=== PATIENT | female | born 1980 | race African-American/Black ===

== ENCOUNTER 2018-11-29 13:33 | Emergency (ER) | payer BC ==
[2018-11-29] MEDS ORDERED: IV NORMAL SALINE 1,000ML 1,000 ML IV SCH (13:42)
[2018-11-29] MEDS ORDERED: HYDROmorphone PF 1 MG/ML DISP.SYRIN IV/SQ PRN (13:45)
--- NOTE | 2018-11-29 13:59 | PHYS DOC ---
Adult General Chief Complaint Chief Complaint: ABDOMINAL PAIN HPI HPI Patient is a 38-year-old female who presents with acute onset of mid abdominal pain that started approximately 45 minutes ago. Patient rates pain as severe and states that pain is worsened with movement and palpation. Nothing improves pain. Patient complains of nausea but has had no vomiting.[] Review of Systems Review of Systems Constitutional: Denies fever or chills [] Respiratory: Denies cough or shortness of breath [] Cardiovascular: No additional information not addressed in HPI [] GI: Complains of abdominal pain with nausea. Denies vomiting or diarrhea[] : Denies dysuria or hematuria [] All other systems were reviewed and found to be within normal limits, except as documented in this note. Current Medications Current Medications Current Medications Medications (Trade) Dose Ordered Sig/Franki Start Time Stop Time Status Last Admin Dose Admin Hydromorphone HCl (Dilaudid) 1 mg PRN Q15MIN PRN 11/29/18 13:45 11/30/18 13:44 UNV Sodium Chloride 1,000 ml @ 1,000 mls/hr Q1H 11/29/18 13:42 11/29/18 14:41 UNV Physical Exam Physical Exam Constitutional: Well developed, well nourished, in moderate distress, non-toxic appearance. [] HENT: Normocephalic, atraumatic, bilateral external ears normal, oropharynx moist, no oral exudates, nose normal. [] Eyes: PERRLA, EOMI, conjunctiva normal, no discharge. [] Neck: Normal range of motion, no tenderness, supple, no stridor. [] Cardiovascular:Heart rate regular rhythm, no murmur [] Lungs & Thorax: Bilateral breath sounds clear to auscultation [] Abdomen: Bowel sounds normal, soft, with moderate mid to upper abdominal tenderness. [] Skin: Warm, dry, no erythema, no rash. [] Extremities: No tenderness, no cyanosis, no clubbing, ROM intact, no edema. [] Neurologic: Alert and oriented X 3, no focal deficits noted. [] EKG EKG [] Radiology/Procedures Radiology/Procedures [] Impressions: PROCEDURE: US PELVIS W/TV Examination: Ultrasound pelvis HISTORY: History of pelvic pain COMPARISON: None available FINDINGS: The uterus measures 8.5 x 5.4 x 4.7 cm. The endometrium measures 3.8 mm in thickness. The right ovary measures 3.3 x 1.8 x 1.7 cm. The left ovary measures 2.3 x 1.2 x 1.2 cm. Blood flow identified in the right and left ovaries. IMPRESSION: Unremarkable exam. Electronically signed by: Anson Roberson MD (11/29/2018 4:17 PM) [facility] PROCEDURE: CT ABD PELV W/ IV CONTRST ONLY Examination: CT of the abdomen pelvis with IV contrast HISTORY: History of abdominal pain COMPARISON: None available Technique: Axial CT images of the abdomen pelvis were performed with IV contrast. Coronal and sagittal reformats are performed Exposure: One or more of the following individualized dose reduction techniques were utilized for this examination: 1. Automated exposure control 2. Adjustment of the mA and/or kV according to patient size 3. Use of iterative reconstruction technique FINDINGS: The bibasilar lungs are clear. No evidence of free air identified in the abdomen. Mild decreased attenuation noted in the liver likely hepatic steatosis. The visualized spleen, adrenals grossly appears unremarkable. Cholecystectomy clips identified. Surgical changes identified in the stomach. The visualized pancreas grossly appears unremarkable. Mild fluid distended small bowel loops identified. The appendix is normal. Feces and gas noted in the colon. Urinary bladder is mildly distended. The bilateral kidneys enhance symmetrically. No evidence of lytic bony destructive lesion. IMPRESSION: 1. Minimal fluid distended small bowel loops, nonspecific could be mild enteritis. Otherwise no acute findings. Electronically signed by: Anson Roberson MD (11/29/2018 2:44 PM) [facility] Course & Med Decision Making Course & Med Decision Making Pertinent Labs and Imaging studies reviewed. (See chart for details) [] Dragon Disclaimer Dragon Disclaimer This electronic medical record was generated, in whole or in part, using a voice recognition dictation system. Departure Departure: Impression: Primary Impression: Enteritis Additional Impression: Abdominal pain Disposition: 01 HOME, SELF-CARE Condition: STABLE Referrals: PCP,NO (PCP) Patient Instructions: Abdominal Pain Scripts Ondansetron Hcl (ZOFRAN) 4 Mg Tablet 4 MG PO Q6HRS PRN for NAUSEA, #12 TAB Prov: HERMANN BANKS Jr. DO 11/29/18 Hydrocodone Bit/Acetaminophen (NORCO 5-325 TABLET) 1 Each Tablet 1 TAB PO PRN Q6HRS PRN for PAIN, #12 TAB 0 Refills Prov: HERMANN BANKS Jr. DO 11/29/18 Ciprofloxacin Hcl (CIPROFLOXACIN HCL) 500 Mg Tablet 1 TAB PO BID for infection, #20 TAB Prov: HERMANN BANKS Jr. DO 11/29/18 Metronidazole (FLAGYL) 500 Mg Tablet 500 MG PO TID for infection, #30 TAB Prov: HERMANN BANKS Jr. DO 11/29/18 Problem Qualifiers Additional Impression: Abdominal pain Abdominal location: periumbilical Qualified Codes: R10.33 - Periumbilical pain HERMANN BANKS Jr. DO Nov 29, 2018 13:59
[2018-11-29 14:00] VITALS: BP 170/80
[2018-11-29 14:00] LABS: BASO # 0.1 x10^3/uL (0.0-0.2); BASO % 1 % (0-3); EOS % 0 % (0-3); HEMATOCRIT 33.4 % (36.0-47.0); HEMOGLOBIN 10.5 g/dL (12.0-15.5); LYMPH # 1.6 x10^3/uL (1.0-4.8); LYMPH % 10 % (24-48); MEAN CORPUSCULAR HEMOGLOBIN 23 pg (25-35); MEAN CORPUSCULAR HGB CONC 31 g/dL (31-37); MEAN CORPUSCULAR VOLUME 73 fL (79-100); MONO # 0.8 x10^3/uL (0.0-1.1); MONO % 5 % (0-9); NEUT # 14.2 x10^3uL (1.8-7.7); NEUT % 85 % (31-73); PLATELET COUNT 529 x10^3/uL (140-400); RED BLOOD COUNT 4.61 x10^6/uL (3.50-5.40); RED CELL DISTRIBUTION WIDTH 20.3 % (11.5-14.5); WHITE BLOOD COUNT 16.7 x10^3/uL (4.0-11.0)
[2018-11-29] MEDS ORDERED: IOHEXOL 300 MG/ML 75 ML VIAL. IV ONE (14:00)
[2018-11-29] MEDS ORDERED: METOCLOPRAMIDE HCL 10 MG/2 ML VIAL. IV ONE (14:00)
[2018-11-29] MEDS ORDERED: diphenhydrAMINE 50 MG/ML VIAL IVP ONE (14:00)
[2018-11-29 14:10] LABS: ALBUMIN 4.3 g/dL (3.4-5.0); CALCIUM 9.7 mg/dL (8.5-10.1); CREATININE 0.9 mg/dL (0.6-1.0); GFR 83.9; TOTAL PROTEIN 8.5 g/dL (6.4-8.2)
[2018-11-29 14:19] LABS: % BANDS 1 % (0-9); % LYMPHS 7 % (24-48); % MONOS 6 % (0-10); % SEGS 86 % (35-66); PLT ESTIMATE INCREASED (ADEQUATE)
[2018-11-29 14:20] LABS: ANISOCYTOSIS SLIGHT; MICROCYTOSIS SLIGHT; OVALOCYTES FEW
[2018-11-29 14:21] LABS: TOXIC GRANULATION SLIGHT
[2018-11-29 14:23] LABS: HYPOCHROMIA SLIGHT
--- NOTE | 2018-11-29 14:47 | RAD ---
Examination: CT of the abdomen pelvis with IV contrast HISTORY: History of abdominal pain COMPARISON: None available Technique: Axial CT images of the abdomen pelvis were performed with IV contrast. Coronal and sagittal reformats are performed Exposure: One or more of the following individualized dose reduction techniques were utilized for this examination: 1. Automated exposure control 2. Adjustment of the mA and/or kV according to patient size 3. Use of iterative reconstruction technique FINDINGS: The bibasilar lungs are clear. No evidence of free air identified in the abdomen. Mild decreased attenuation noted in the liver likely hepatic steatosis. The visualized spleen, adrenals grossly appears unremarkable. Cholecystectomy clips identified. Surgical changes identified in the stomach. The visualized pancreas grossly appears unremarkable. Mild fluid distended small bowel loops identified. The appendix is normal. Feces and gas noted in the colon. Urinary bladder is mildly distended. The bilateral kidneys enhance symmetrically. No evidence of lytic bony destructive lesion. IMPRESSION: 1. Minimal fluid distended small bowel loops, nonspecific could be mild enteritis. Otherwise no acute findings. Electronically signed by: Anson Roberson MD (11/29/2018 2:44 PM) [facility]
--- NOTE | 2018-11-29 16:20 | RAD ---
Examination: Ultrasound pelvis HISTORY: History of pelvic pain COMPARISON: None available FINDINGS: The uterus measures 8.5 x 5.4 x 4.7 cm. The endometrium measures 3.8 mm in thickness. The right ovary measures 3.3 x 1.8 x 1.7 cm. The left ovary measures 2.3 x 1.2 x 1.2 cm. Blood flow identified in the right and left ovaries. IMPRESSION: Unremarkable exam. Electronically signed by: Anson Roberson MD (11/29/2018 4:17 PM) [facility]
[2018-11-29] MEDS ORDERED: HYDR-3165 PO (16:35)
[2018-11-29] MEDS ORDERED: CIPR500T PO (16:35)
[2018-11-29] MEDS ORDERED: ONDA4TAB7 PO (16:35)
[2018-11-29] MEDS ORDERED: METR500T PO (16:35)
[2018-11-29 16:49] LABS: BILIRUBIN,URINE NEG (NEG); CLARITY,URINE HAZY; COLOR,URINE YELLOW; GLUCOSE,URINE NEG (NEG)
[2018-11-29 16:50] LABS: BACTERIA,URINE FEW /HPF (0-FEW); NITRITE,URINE NEG (NEG); SQUAMOUS EPITHELIAL CELL,UR OCC /LPF; UROBILINOGEN,URINE 1 mg/dL (0.2 mg/dL)
[2018-11-29] MEDS ORDERED: metroNIDAZOLE 500 MG TABLET PO ONE (17:00)
[2018-11-29] MEDS ORDERED: CIPROFLOXACIN HCL 500 MG TABLET PO ONE (17:00)
== END 2018-11-29 14:26 | disposition home or self-care (01) ==
LOC: ER 13:33
DX: K52.9 Noninfective gastroenteritis and colitis, unspecified (principal); R10.33 Periumbilical pain; N32.89 Other specified disorders of bladder
CPT/HCPCS: 36415; 74177; 76830; 76856; 80053; 81001; 83690; 84484; 85007; 85025; 93005; 96361; 96374; 96375; 99285; J1170; J1200; J2765; J7030

== ENCOUNTER 2018-12-19 15:47 | Emergency (ER) | payer BC ==
[~2018-12-19 15:47] MED LIST: CIPR500T PO; HYDR-3165 PO; METR500T PO; ONDA4TAB7 PO
[2018-12-19] MEDS ORDERED: DICYCLOMINE HCL 20 MG TABLET PO ONE (16:00)
[2018-12-19 16:15] VITALS: BP 140/100
[2018-12-19 16:36] LABS: BASO % 0 % (0-3); EOS % 0 % (0-3); HEMATOCRIT 32.4 % (36.0-47.0); HEMOGLOBIN 10.3 g/dL (12.0-15.5); LYMPH # 2.1 x10^3/uL (1.0-4.8); LYMPH % 20 % (24-48); MEAN CORPUSCULAR HEMOGLOBIN 24 pg (25-35); MEAN CORPUSCULAR HGB CONC 32 g/dL (31-37); MEAN CORPUSCULAR VOLUME 74 fL (79-100); MONO # 0.4 x10^3/uL (0.0-1.1); MONO % 4 % (0-9); NEUT # 7.7 x10^3uL (1.8-7.7); NEUT % 75 % (31-73); PLATELET COUNT 416 x10^3/uL (140-400); RED BLOOD COUNT 4.35 x10^6/uL (3.50-5.40); RED CELL DISTRIBUTION WIDTH 19.6 % (11.5-14.5); WHITE BLOOD COUNT 10.3 x10^3/uL (4.0-11.0)
[2018-12-19 16:44] LABS: ALBUMIN 4.2 g/dL (3.4-5.0); ALBUMIN/GLOBULIN RATIO 1.1 (1.0-1.7); CREATININE 0.8 mg/dL (0.6-1.0); GFR 96.1; POTASSIUM 3.8 mmol/L (3.5-5.1); TOTAL BILIRUBIN 0.6 mg/dL (0.2-1.0); TOTAL PROTEIN 8.1 g/dL (6.4-8.2)
[2018-12-19] MEDS ORDERED: DIAZ5TAB PO (17:03)
--- NOTE | 2018-12-19 17:03 | PHYS DOC ---
Past History Past Medical History: No Pertinent History Past Surgical History: Cholecystectomy, Other Alcohol Use: None Drug Use: None Adult General Chief Complaint Chief Complaint: ABDOMINAL PAIN HPI HPI Patient is a 38-year-old female with chronic abdominal pain that she describes as paroxysmal waves of cramping. She is been seen in this emergency department almost 20 times in the last several months for the same. She has a specialist at which she is seen. Apparently she takes Bentyl to help with her symptoms. She states today the pain is unbearable and out of control. Cramping in nature. She denies any melena or hematochezia. She denies any vomiting or diarrhea. She has not had any fever chills or sweats. She denies any dysuria or gross hematuria.[] Review of Systems Review of Systems Constitutional: Denies fever or chills [] Eyes: Denies change in visual acuity, redness, or eye pain [] HENT: Denies nasal congestion or sore throat [] Respiratory: Denies cough or shortness of breath [] Cardiovascular: No additional information not addressed in HPI [] GI: Per history of present illness[] : Denies dysuria or hematuria [] Musculoskeletal: Denies back pain or joint pain [] Integument: Denies rash or skin lesions [] Neurologic: Denies headache, focal weakness or sensory changes [] Endocrine: Denies polyuria or polydipsia [] All other systems were reviewed and found to be within normal limits, except as documented in this note. Current Medications Current Medications Current Medications Medications (Trade) Dose Ordered Sig/[facility] Start Time Stop Time Status Last Admin Dose Admin Dicyclomine HCl (Bentyl) 20 mg 1X ONCE 12/19/18 16:00 12/19/18 16:08 DC 12/19/18 16:25 20 MG Lorazepam (Ativan Inj) 1 mg 1X ONCE 12/19/18 16:30 12/19/18 16:31 DC 12/19/18 16:33 1 MG Allergies Allergies Allergies Coded Allergies Type Severity Reaction Last Updated Verified morphine Allergy Unknown 11/29/18 Yes Physical Exam Physical Exam Constitutional: Well developed, well nourished, moderate to severe distress, non-toxic appearance. [] HENT: Normocephalic, atraumatic, bilateral external ears normal, oropharynx moist, no oral exudates, nose normal. [] Eyes: PERRLA, EOMI, conjunctiva normal, no discharge. [] Neck: Normal range of motion, no tenderness, supple, no stridor. [] Cardiovascular:Heart rate regular rhythm, no murmur [] Lungs & Thorax: Bilateral breath sounds clear to auscultation [] Abdomen: Soft a few slightly tender to palp no rebound or guarding[] Skin: Warm, dry, no erythema, no rash. [] Back: No tenderness, no CVA tenderness. [] Extremities: No tenderness, no cyanosis, no clubbing, ROM intact, no edema. [] Neurologic: Alert and oriented X 3, normal motor function, normal sensory function, no focal deficits noted. [] Psychologic: Extremely anxious. [] Current Patient Data Vital Signs Vital Signs Date Time Temp Pulse Resp B/P (MAP) Pulse Ox O2 Delivery O2 Flow Rate FiO2 12/19/18 16:02 98.9 111 26 98 Room Air Lab Results Laboratory Tests Test 12/19/18 16:15 White Blood Count 10.3 x10^3/uL (4.0-11.0) Red Blood Count 4.35 x10^6/uL (3.50-5.40) Hemoglobin 10.3 g/dL (12.0-15.5) L Hematocrit 32.4 % (36.0-47.0) L Mean Corpuscular Volume 74 fL (79-100) L Mean Corpuscular Hemoglobin 24 pg (25-35) L Mean Corpuscular Hemoglobin Concent 32 g/dL (31-37) Red Cell Distribution Width 19.6 % (11.5-14.5) H Platelet Count 416 x10^3/uL (140-400) H Neutrophils (%) (Auto) 75 % (31-73) H Lymphocytes (%) (Auto) 20 % (24-48) L Monocytes (%) (Auto) 4 % (0-9) Eosinophils (%) (Auto) 0 % (0-3) Basophils (%) (Auto) 0 % (0-3) Neutrophils # (Auto) 7.7 x10^3uL (1.8-7.7) Lymphocytes # (Auto) 2.1 x10^3/uL (1.0-4.8) Monocytes # (Auto) 0.4 x10^3/uL (0.0-1.1) Eosinophils # (Auto) 0.0 x10^3/uL (0.0-0.7) Basophils # (Auto) 0.0 x10^3/uL (0.0-0.2) Sodium Level 137 mmol/L (136-145) Potassium Level 3.8 mmol/L (3.5-5.1) Chloride Level 102 mmol/L (98-107) Carbon Dioxide Level 24 mmol/L (21-32) Anion Gap 11 (6-14) Blood Urea Nitrogen 13 mg/dL (7-20) Creatinine 0.8 mg/dL (0.6-1.0) Estimated GFR (Cockcroft-Gault) 96.1 BUN/Creatinine Ratio 16 (6-20) Glucose Level 127 mg/dL (70-99) H Calcium Level 9.0 mg/dL (8.5-10.1) Total Bilirubin 0.6 mg/dL (0.2-1.0) Aspartate Amino Transferase (AST) 17 U/L (15-37) Alanine Aminotransferase (ALT) 15 U/L (14-59) Alkaline Phosphatase 76 U/L (46-116) Total Protein 8.1 g/dL (6.4-8.2) Albumin 4.2 g/dL (3.4-5.0) Albumin/Globulin Ratio 1.1 (1.0-1.7) Lipase 186 U/L (73-393) EKG EKG [] Radiology/Procedures Radiology/Procedures [] Course & Med Decision Making Course & Med Decision Making Pertinent Labs and Imaging studies reviewed. (See chart for details) [ED course: Evaluation reveals extremely anxious 38-year-old female with a relatively benign abdominal exam. Her laboratory studies are also unremarkable. She was given IV fluids and 2 mg of Ativan during her stay along with 20 mg of Bentyl by mouth which did help alleviate her symptoms. After approximately one hour the patient was resting quietly and breathing easily in bed. I suspect there is a large part of this that is anxiety related.] Dragon Disclaimer Dragon Disclaimer This electronic medical record was generated, in whole or in part, using a voice recognition dictation system. Departure Departure: Impression: Primary Impression: Abdominal pain Disposition: 01 HOME, SELF-CARE Condition: IMPROVED Referrals: PCP,UNKNOWN (PCP) Patient Instructions: Abdominal Pain Additional Instructions: Follow with her primary care physician and/or power engineer in the next 2-3 days for recheck. Return to the emergency department with any new or concerning symptoms Scripts Diazepam (VALIUM) 5 Mg Tablet 5 MG PO PRN Q8HRS PRN for ANXIETY / AGITATION, #15 TAB Prov: JOAN MCDERMOTT DO 12/19/18 Problem Qualifiers Primary Impression: Abdominal pain Abdominal location: generalized Qualified Codes: R10.84 - Generalized abdominal pain JOAN MCDERMOTT DO Dec 19, 2018 17:03
== END 2018-12-19 17:19 | disposition home or self-care (01) ==
LOC: ER 15:47
DX: G89.29 Other chronic pain (principal); R10.84 Generalized abdominal pain; Z90.49 Acquired absence of other specified parts of digestive tract
CPT/HCPCS: 36415; 80053; 83690; 85025; 96374; 99284; J2060; 96375

== ENCOUNTER 2018-12-20 11:44 | Emergency (ER) | payer BC ==
[~2018-12-20 11:44] MED LIST changes: +DIAZ5TAB PO
[2018-12-20] MEDS ORDERED: IV NORMAL SALINE 1,000ML 1,000 ML IV SCH (12:13)
[2018-12-20] MEDS ORDERED: CAPSAICIN 0.025% TOPICAL CREAM 60GM TUBE. TP ONE (12:15)
[2018-12-20] MEDS ORDERED: PROCHLORPERAZINE 10 MG/2 ML VIAL. IV ONE (12:15)
[2018-12-20] MEDS ORDERED: KETOROLAC 30 MG/ML VIAL. IV ONE (12:15)
--- NOTE | 2018-12-20 12:18 | PHYS DOC ---
Past History Past Medical History: No Pertinent History Past Surgical History: Cholecystectomy, Other Smoking: Cigarettes, Less than 1pk/day Alcohol Use: None Drug Use: Marijuana Social History Narrative: last use yesterday Adult General Chief Complaint Chief Complaint: ABDOMINAL PAIN HPI HPI Patient is a 38-year-old female presents with abdominal pain and cramping. This is been an ongoing issue for approximately the past year. Today's episode started this morning. Some nausea and vomiting. No diarrhea. Patient reports having used marijuana last night. No blood in the emesis. Pain is diffuse and crampy. Patient was unable to tolerate her oral Bentyl tablet. No fever. She is scheduled for follow-up/evaluation by GI within the next 2 weeks. No improvement with the liquid diet that her primary physician has placed her on. Symptoms are moderate to severe today.[] Review of Systems Review of Systems Constitutional: Denies fever or chills [] Eyes: Denies change in visual acuity, redness, or eye pain [] HENT: Denies nasal congestion or sore throat [] Respiratory: Denies cough or shortness of breath [] Cardiovascular: No chest pain or palpitations[] GI: See history of present illness[] : Denies dysuria or hematuria [] Musculoskeletal: Denies back pain or joint pain [] Integument: Denies rash or skin lesions [] Neurologic: Denies headache, focal weakness or sensory changes [] Endocrine: Denies polyuria or polydipsia [] All other systems were reviewed and found to be within normal limits, except as documented in this note. Allergies Allergies Allergies Coded Allergies Type Severity Reaction Last Updated Verified morphine Allergy Unknown 11/29/18 Yes Physical Exam Physical Exam Constitutional: Well developed, well nourished, moderate discomfort, rocking around on the bed, non-toxic appearance. [] HENT: Normocephalic, atraumatic, bilateral external ears normal, oropharynx moist, no oral exudates, nose normal. [] Eyes: PERRLA, EOMI, conjunctiva normal, no discharge. [] Neck: Normal range of motion, no tenderness, supple, no stridor. [] Cardiovascular:Heart rate regular rhythm, no murmur [] Lungs & Thorax: Bilateral breath sounds clear to auscultation [] Abdomen: Bowel sounds normal, soft, diffuse tenderness, no rebound, no guarding, no rigidity, no masses, no pulsatile masses. [] Skin: Warm, dry, no erythema, no rash. [] Back: No tenderness, no CVA tenderness. [] Extremities: No tenderness, no cyanosis, no clubbing, ROM intact, no edema. [] Neurologic: Alert and oriented X 3, normal motor function, normal sensory function, no focal deficits noted. [] Psychologic: Affect normal, judgement normal, mood normal. [] Current Patient Data Vital Signs Vital Signs Date Time Temp Pulse Resp B/P (MAP) Pulse Ox O2 Delivery O2 Flow Rate FiO2 12/20/18 12:04 98.3 90 26 100 EKG EKG [] Radiology/Procedures Radiology/Procedures PROCEDURE: CT ABD PELV W/ORAL&IV CONTRAST PQRS Compliance Statement: One or more of the following individualized dose reduction techniques were utilized for this examination: 1. Automated exposure control 2. Adjustment of the mA and/or kV according to patient size 3. Use of iterative reconstruction technique CT abdomen/pelvis with contrast 12/20/2018 1:41 PM INDICATION: Abdominal pain COMPARISON: CT abdomen/pelvis November 29, 2018 TECHNIQUE: Multiple axial CT images of the abdomen and pelvis were obtained after the intravenous administration of nonionic contrast. Coronal and sagittal reformats are provided. FINDINGS: Visualized portions of the lung bases are clear. Heart size is within normal limits. No suspicious hepatic masses are identified. Liver is homogeneous in enhancement. Spleen, bilateral adrenal glands, and pancreas are normal in appearance. Gallbladder is surgically absent. The abdominal aorta is normal in course and caliber. There are no pathologically enlarged lymph nodes in the abdomen and pelvis. There is no abdominal free fluid. There is no free intraperitoneal air. Oral contrast was administered. Opacified bowel loops demonstrate normal mucosal fold pattern. Small and large bowel are normal in caliber. There is no evidence for bowel obstruction. There are no pericolonic inflammatory changes. A normal, nondilated appendix is visualized without adjacent inflammatory changes. Partial gastrectomy changes are present. The kidneys enhance symmetrically. There is no suspicious renal mass. There is no hydronephrosis. There are no suspected calculi within the kidneys, ureters or urinary bladder. 5 mm hypodensity in the lateral interpolar right kidney is nonspecific and statistically favored represent a simple cyst. Urinary bladder is within normal limits given degree of distention. Uterus and adnexa are normal by CT. Follicular changes are identified in the left adnexa. There is a crenulated cystic lesion in the left ovary which may represent a hemorrhagic cyst measuring 18 mm. No suspicious osseous normality. IMPRESSION: No acute abnormality is identified in abdomen and pelvis, as described in detail above.[] Course & Med Decision Making Course & Med Decision Making Pertinent Labs and Imaging studies reviewed. (See chart for details) ED course: Patient arrived, was placed in bed, and tolerated exam well. She was given IV fluids, antinausea medicines, smooth muscle relaxants, as well as capsaicin due to concern for possible cyclic vomiting syndrome. These did not have any appreciable improvement in her symptoms. She was additionally given haloperidol which again did not improve her symptoms. She was able to be transported to and from radiology without any complications. After the return of laboratory and imaging studies, these were discussed with the patient and her mother who voiced understanding. Options including going home and filling the prescription that was given yesterday as well as admission for further evaluation and treatment were present for the patient. She elected to be admitted for further evaluation and treatment. The hospitalist service was consult it and due to having no GI specialty services here at [facility], and having long-standing issues with 18 previous visits between hospital admissions and ER visits for these symptoms in the past year, it was elected to transfer her to [place] where a higher level of care was available. She was transferred in improved condition. Decision-making: There is no evidence of an obstruction, perforation, cholecystitis, appendicitis, nor significant electrolyte abnormality. Her white count has been accounts specialist from yesterday to today. There are some red cells and white cells in the urine but do not believe this to be a urinary tract infection at this time. She is being admitted for intractable pain and nausea and vomiting issues.[] Dragon Disclaimer Dragon Disclaimer This electronic medical record was generated, in whole or in part, using a voice recognition dictation system. Departure Departure: Impression: Primary Impression: Abdominal pain Additional Impression: Nausea and vomiting Disposition: 05 TRANSFER OTHER Admitting Physician: Xavier Byrd Condition: IMPROVED Referrals: PCP,UNKNOWN (PCP) Problem Qualifiers Primary Impression: Abdominal pain Abdominal location: generalized Qualified Codes: R10.84 - Generalized abdominal pain Additional Impression: Nausea and vomiting Vomiting type: unspecified Vomiting Intractability: unspecified Qualified Codes: R11.2 - Nausea with vomiting, unspecified ALFREDITO REID DO Dec 20, 2018 12:18
[2018-12-20] MEDS ORDERED: DICYCLOMINE 20 MG/2 ML AMPUL. IM ONE (12:30)
[2018-12-20] MEDS ORDERED: IOHEXOL 240 MG/ML 50ML VIAL. PO ONE (12:30)
[2018-12-20] MEDS ORDERED: IOHEXOL 300 MG/ML 75 ML VIAL. IV ONE (12:30)
[2018-12-20 13:07] LABS: BASO % 0 % (0-3); EOS % 0 % (0-3); HEMATOCRIT 33.3 % (36.0-47.0); HEMOGLOBIN 10.6 g/dL (12.0-15.5); LYMPH # 1.3 x10^3/uL (1.0-4.8); LYMPH % 10 % (24-48); MEAN CORPUSCULAR HEMOGLOBIN 24 pg (25-35); MEAN CORPUSCULAR HGB CONC 32 g/dL (31-37); MEAN CORPUSCULAR VOLUME 75 fL (79-100); MONO # 0.5 x10^3/uL (0.0-1.1); MONO % 4 % (0-9); NEUT # 11.9 x10^3uL (1.8-7.7); NEUT % 86 % (31-73); PLATELET COUNT 403 x10^3/uL (140-400); RED BLOOD COUNT 4.47 x10^6/uL (3.50-5.40); RED CELL DISTRIBUTION WIDTH 19.4 % (11.5-14.5); WHITE BLOOD COUNT 13.8 x10^3/uL (4.0-11.0)
[2018-12-20 13:11] LABS: AMPHETAMINE/METHAMPHETAMINE NEG (NEG); BARBITURATES NEG (NEG); BENZODIAZEPINES NEG (NEG); CANNABINOIDS POS (NEG); COCAINE NEG (NEG); METHADONE NEG (NEG); OPIATES POS (NEG); PHENCYCLIDINE NEG (NEG)
[2018-12-20 13:14] LABS: ALBUMIN 4.6 g/dL (3.4-5.0); ALBUMIN/GLOBULIN RATIO 1.3 (1.0-1.7); CALCIUM 9.4 mg/dL (8.5-10.1); CREATININE 0.8 mg/dL (0.6-1.0); GFR 96.1; POTASSIUM 3.4 mmol/L (3.5-5.1); TOTAL BILIRUBIN 0.8 mg/dL (0.2-1.0); TOTAL PROTEIN 8.2 g/dL (6.4-8.2)
[2018-12-20 13:18] LABS: BILIRUBIN,URINE NEG (NEG); CLARITY,URINE HAZY; COLOR,URINE YELLOW; GLUCOSE,URINE NEG (NEG); NITRITE,URINE NEG (NEG); UROBILINOGEN,URINE 1 mg/dL (0.2 mg/dL)
[2018-12-20 13:19] LABS: BACTERIA,URINE FEW /HPF (0-FEW); SQUAMOUS EPITHELIAL CELL,UR MOD /LPF
[2018-12-20 13:27] LABS: % BANDS 1 % (0-9); % LYMPHS 6 % (24-48); % MONOS 4 % (0-10); % SEGS 89 % (35-66)
[2018-12-20 13:28] LABS: PLT ESTIMATE INCREASED (ADEQUATE)
[2018-12-20 13:29] LABS: TOXIC GRANULATION SLIGHT; TOXIC VACUOLATION SLIGHT
[2018-12-20 13:30] LABS: ANISOCYTOSIS SLIGHT; HYPOCHROMIA SLIGHT; MICROCYTOSIS SLIGHT
[2018-12-20] MEDS ORDERED: HALOPERIDOL LACT 5 MG/ML VIAL. IVP ONE ×2 (13:30→14:15)
[2018-12-20 13:31] LABS: OVALOCYTES OCC; POLYCHROMASIA SLIGHT; TEAR DROP CELLS OCC
--- NOTE | 2018-12-20 14:09 | RAD ---
PQRS Compliance Statement: One or more of the following individualized dose reduction techniques were utilized for this examination: 1. Automated exposure control 2. Adjustment of the mA and/or kV according to patient size 3. Use of iterative reconstruction technique CT abdomen/pelvis with contrast 12/20/2018 1:41 PM INDICATION: Abdominal pain COMPARISON: CT abdomen/pelvis November 29, 2018 TECHNIQUE: Multiple axial CT images of the abdomen and pelvis were obtained after the intravenous administration of nonionic contrast. Coronal and sagittal reformats are provided. FINDINGS: Visualized portions of the lung bases are clear. Heart size is within normal limits. No suspicious hepatic masses are identified. Liver is homogeneous in enhancement. Spleen, bilateral adrenal glands, and pancreas are normal in appearance. Gallbladder is surgically absent. The abdominal aorta is normal in course and caliber. There are no pathologically enlarged lymph nodes in the abdomen and pelvis. There is no abdominal free fluid. There is no free intraperitoneal air. Oral contrast was administered. Opacified bowel loops demonstrate normal mucosal fold pattern. Small and large bowel are normal in caliber. There is no evidence for bowel obstruction. There are no pericolonic inflammatory changes. A normal, nondilated appendix is visualized without adjacent inflammatory changes. Partial gastrectomy changes are present. The kidneys enhance symmetrically. There is no suspicious renal mass. There is no hydronephrosis. There are no suspected calculi within the kidneys, ureters or urinary bladder. 5 mm hypodensity in the lateral interpolar right kidney is nonspecific and statistically favored represent a simple cyst. Urinary bladder is within normal limits given degree of distention. Uterus and adnexa are normal by CT. Follicular changes are identified in the left adnexa. There is a crenulated cystic lesion in the left ovary which may represent a hemorrhagic cyst measuring 18 mm. No suspicious osseous normality. IMPRESSION: No acute abnormality is identified in abdomen and pelvis, as described in detail above. Electronically signed by: Felicai Bundy MD (12/20/2018 2:06 PM) [facility]
[2018-12-20 15:25] VITALS: BP 146/84
== END 2018-12-20 16:08 | disposition short-term general hospital (02) ==
LOC: ER 11:44
DX: R10.84 Generalized abdominal pain (principal); R11.2 Nausea with vomiting, unspecified; Z88.5 Allergy status to narcotic agent
CPT/HCPCS: 36415; 74177; 80053; 80307; 81001; 81025; 83690; 85007; 85025; 87086; 96361; 96372; 96374; 96375; 96376; 99285; J0500; J0780; J1630; J1885; J2060; Q9967; J7030

== ENCOUNTER 2021-09-03 18:21 | Emergency (ER) | payer BC ==
[~2021-09-03] VITALS: Ht 165.1 cm; Wt 71.3 kg
[~2021-09-03 18:21] MED LIST changes: -CIPR500T PO; +CIPR500T2 PO
--- NOTE | 2021-09-03 18:23 | PHYS DOC ---
Past History Past Medical History: No Pertinent History Past Surgical History: Cholecystectomy, Other Smoking: Cigarettes, Less than 1pk/day Alcohol Use: None Drug Use: Marijuana General Adult EDM: Chief Complaint: ABDOMINAL PAIN HPI: HPI: ".. I ve been hurting two days now.. cramping.. Nauseated.. hurt all over.. but more upper..." Patient is a 41 year old female who presents with above hx and complaints of abdomen pain. Patient describes severe abdomen pain for the last 2 days. No history of bad food intake. No history of travel. No history of trauma. No history of ill contacts no history immunosuppression. Patient did get COVID vaccination but did not get flu vaccination. Patient has had cholecystectomy. Patient does still smoke marijuana. Patient has had previous episodes of abdomen pain. Denies any current abnormal discharge. Previous episodes were associated with cholecystitis. Patient currently rates her pain as severe. Review of Systems: Review of Systems: Constitutional: Denies fever or chills Eyes: Denies change in visual acuity HENT: Denies nasal congestion or sore throat Respiratory: Denies cough or shortness of breath Cardiovascular: Denies chest pain or edema GI: Complains of generalized crampy abdominal pain, nausea, vomiting,. Denies bloody stools or diarrhea : Denies dysuria Musculoskeletal: Denies back pain or joint pain Integument: Denies rash Neurologic: Denies headache, focal weakness or sensory changes Endocrine: Denies polyuria or polydipsia Lymphatic: Denies swollen glands Psychiatric: Denies depression or anxiety Family History: Family History: Noncontributory presentation Current Medications: Current Meds: See nursing for home meds Allergies: Allergies: Allergies Coded Allergies Type Severity Reaction Last Updated Verified morphine Allergy Unknown 11/29/18 Yes Physical Exam: PE: Constitutional: in acute distress, non-toxic appearance. [] HENT: Normocephalic, atraumatic, bilateral external ears normal, oropharynx dry, no oral exudates, nose normal. Nasal rings and stud Eyes: PERRLA, EOMI, conjunctiva normal, no discharge. [] Neck: Normal range of motion, no tenderness, supple, no stridor. [] Cardiovascular. Heart rate bradycardia regular rhythm, no murmur [] Lungs & Thorax: Bilateral breath sounds equal apex with few wheezes auscultation [] Abdomen: Bowel sounds hyperactive soft, rebound to epigastric tenderness, no masses, no pulsatile masses. Generalized tenderness. Old surgery scars. Pt. declines rectal at this time. Skin: Warm, dry, no erythema, no rash. [] Back: No tenderness, no CVA tenderness. [] Extremities: No tenderness, no cyanosis, no clubbing, ROM intact, no edema. No psoas sign. Neurologic: Alert and oriented X 3, normal motor function, normal sensory fun ction, no focal deficits noted. [] Psychologic: Affect anxious, judgement normal, mood normal. [] EKG: EKG: My interpretation of EKG shows a sinus bradycardia 52 bpm. There is a P wave before each QRS. Leftward axis. But no findings acute STEMI of contralateral changes. Time of EKG is 1948 hrs. [] Radiology/Procedures: Radiology/Procedures: [place] [address] IMAGING REPORT Signed PATIENT: MINH DOCKERY Crystal ACCOUNT: [id number] : 1980 LOCATION: ER AGE: 38 SEX: F EXAM STATUS: REG ER ORD. PHYSICIAN: HERMANN BANKS Jr., DO REASON: abd/pelvic pain; poss ovarian torsion vs ruptured ovarian cyst PROCEDURE: US PELVIS W/TV Examination: Ultrasound pelvis HISTORY: History of pelvic pain COMPARISON: None available FINDINGS: The uterus measures 8.5 x 5.4 x 4.7 cm. The endometrium measures 3.8 mm in thickness. The right ovary measures 3.3 x 1.8 x 1.7 cm. The left ovary measures 2.3 x 1.2 x 1.2 cm. Blood flow identified in the right and left ovaries. IMPRESSION: Unremarkable exam. Electronically signed by: Anson Roberson MD (11/29/2018 4:17 PM) [facility] DICTATED AND SIGNED BY: ANSON ROBERSON MD DATE: 11/29/181616 CC: HERMANN BANKS Jr. DO; PCP,NO ~ [address] [address] IMAGING REPORT Signed PATIENT: HIREN DOCKERYJavon Rojas ACCOUNT: [id number] : 1980 LOCATION: ER AGE: 38 SEX: F EXAM STATUS: REG ER ORD. PHYSICIAN: ALFREDITO REID DO REASON: abdominal pain PROCEDURE: CT ABD PELV W/ORAL&IV CONTRAST PQRS Compliance Statement: One or more of the following individualized dose reduction techniques were utilized for this examination: 1. Automated exposure control 2. Adjustment of the mA and/or kV according to patient size 3. Use of iterative reconstruction technique CT abdomen/pelvis with contrast 12/20/2018 1:41 PM INDICATION: Abdominal pain COMPARISON: CT abdomen/pelvis November 29, 2018 TECHNIQUE: Multiple axial CT images of the abdomen and pelvis were obtained after the intravenous administration of nonionic contrast. Coronal and sagittal reformats are provided. FINDINGS: Visualized portions of the lung bases are clear. Heart size is within normal limits. []1. Automated exposure control 2. Adjustment of the mA and/or kV according to patient size 3. Use of iterative reconstruction technique CT abdomen/pelvis with contrast 12/20/2018 1:41 PM INDICATION: Abdominal pain COMPARISON: CT abdomen/pelvis November 29, 2018 TECHNIQUE: Multiple axial CT images of the abdomen and pelvis were obtained after the intravenous administration of nonionic contrast. Coronal and sagittal reformats are provided. FINDINGS: Visualized portions of the lung bases are clear. Heart size is within normal limits. No suspicious hepatic masses are identified. Liver is homogeneous in enhancement. Spleen, bilateral adrenal glands, and pancreas are normal in appearance. Gallbladder is surgically absent. The abdominal aorta is normal in course and caliber. There are no pathologically enlarged lymph nodes in the abdomen and pelvis. There is no abdominal free fluid. There is no free intraperitoneal air. Oral contrast was administered. Opacified bowel loops demonstrate normal mucosal fold pattern. Small and large bowel are normal in caliber. There is no evidence for bowel obstruction. There are no pericolonic inflammatory changes. A normal, nondilated appendix is visualized without adjacent inflammatory changes. Partial gastrectomy changes are present. The kidneys enhance symmetrically. There is no suspicious renal mass. There is no hydronephrosis. There are no suspected calculi within the kidneys, ureters or urinary bladder. 5 mm hypodensity in the lateral interpolar right kidney is nonspecific and statistically favored represent a simple cyst. Urinary bladder is within normal limits given degree of distention. Uterus and adnexa are normal by CT. Follicular changes are identified in the left adnexa. There is a crenulated cystic lesion in the left ovary which may represent a hemorrhagic cyst measuring 18 mm. No suspicious osseous normality. IMPRESSION: No acute abnormality is identified in abdomen and pelvis, as described in detail above. Electronically signed by: Shaila Ramirez MD (12/20/2018 2:06 PM) [facility] DICTATED AND SIGNED BY: SHAILA RAMIREZ MD DATE: 12/20/18 1408 Heart Score: C/O Chest Pain: N/A Risk Factors: Risk Factors: DM, Current or recent (<one month) smoker, HTN, HLP, family history of CAD, obesity. Risk Scores: Score 0 - 3: 2.5% MACE over next 6 weeks - Discharge Home Score 4 - 6: 20.3% MACE over next 6 weeks - Admit for Clinical Observation Score 7 - 10: 72.7% MACE over next 6 weeks - Early Invasive Strategies Course & Med Decision Making: Course & Med Decision Making Pertinent Labs and Imaging studies reviewed. (See chart for details) Patient has had a clear fluid diet only for the next 48 hours. No solids. No milk products. Clear fluids only. Push fluids such as apple juice, grape juice, popsicles, sweet tea, 7-Up, Pedialyte, Gatorade,. Take Compazine 10 mg up to 4 times a day for active nausea and vomiting take the Compazine with Benadryl 25 to 50 mg 4 times a day. Follow-up primary care. Return if any concerns. Impression: 1. Abdomen pain 2. Acute gastroenteritis 3. Viral syndrome 4. Leukocytosis 15.9- 73 segs 5. Anemia hemoglobin 11.9 with microcytic MCV74 hypochromicHC 24indices 6. Thrombocytosis 7. Elevated BUN 24/Creat 1.2 8. Mild Dehydration 9. Elevated Andrei T 2.1, D 0.3 10. Elevated CK 207 11. Drug Screen + MJ 12. Tobacco Use. [] Dragon Disclaimer: Dragon Disclaimer: This electronic medical record was generated, in whole or in part, using a voice recognition dictation system. Departure Departure: Referrals: PCP,UNKNOWN (PCP) Scripts Sulfamethoxazole/Trimethoprim (BACTRIM DS TABLET) 1 Each Tablet 1 TAB PO BID for uti for 7 Days, #14 TAB 0 Refills Prov: TIN GREEN MD 09/04/21 Prochlorperazine Maleate (Compazine) 10 Mg Tablet 10 MG PO QIDPRN PRN for nv, #30 TAB Prov: TIN GREEN MD 09/04/21 Dragon Disclaimer This chart was dictated in whole or in part using Voice Recognition software in a busy, high-work load, and often noisy Emergency Department environment. It may contain unintended and wholly unrecognized errors or omissions. TIN GREEN MD Sep 03, 2021 18:23
[2021-09-03] MEDS ORDERED: FAMOTIDINE 20 MG/2 ML VIAL IVP ONE (18:30)
[2021-09-03] MEDS ORDERED: ONDANSETRON PF 4 MG/2 ML VIAL. IVP ONE ×2 (18:30→20:30)
[2021-09-03] MEDS ORDERED: IV RINGERS SOLUTION,LACTATED 1,000 ML IV ONE (18:30)
[2021-09-03] MEDS ORDERED: KETOROLAC 30 MG/ML VIAL. ONE (19:06)
[2021-09-03] MEDS ORDERED: KETOROLAC 30 MG/ML VIAL. IVP ONE (19:15)
[2021-09-03 19:25] LABS: BASO # 0.2 x10^3/uL (0.0-0.2); BASO % 1 % (0-3); EOS % 0 % (0-3); HEMATOCRIT 36.7 % (36.0-47.0); HEMOGLOBIN 11.9 g/dL (12.0-15.5); LYMPH # 1.7 x10^3/uL (1.0-4.8); LYMPH % 10 % (24-48); MEAN CORPUSCULAR HEMOGLOBIN 24 pg (25-35); MEAN CORPUSCULAR HGB CONC 32 g/dL (31-37); MEAN CORPUSCULAR VOLUME 74 fL (79-100); MONO # 0.9 x10^3/uL (0.0-1.1); MONO % 6 % (0-9); NEUT # 13.1 x10^3uL (1.8-7.7); NEUT % 83 % (31-73); PLATELET COUNT 432 x10^3/uL (140-400); RED BLOOD COUNT 4.99 x10^6/uL (3.50-5.40); RED CELL DISTRIBUTION WIDTH 17.1 % (11.5-14.5); WHITE BLOOD COUNT 15.9 x10^3/uL (4.0-11.0)
[2021-09-03 19:32] LABS: BARBITURATES NEG (NEG); BENZODIAZEPINES NEG (NEG); CANNABINOIDS POS (NEG); COCAINE NEG (NEG); METHADONE NEG (NEG); OPIATES NEG (NEG); PHENCYCLIDINE NEG (NEG)
[2021-09-03 19:52] LABS: AMPHETAMINE/METHAMPHETAMINE NEG (NEG)
[2021-09-03 19:56] LABS: BACTERIA,URINE MOD /HPF (0-FEW); CLARITY,URINE CLEAR; COLOR,URINE YELLOW; GLUCOSE,URINE NEG (NEG); NITRITE,URINE NEG (NEG); SQUAMOUS EPITHELIAL CELL,UR MOD /LPF; UROBILINOGEN,URINE 0.2 mg/dL (0.2 mg/dL)
[2021-09-03 20:00] LABS: CALCIUM 9.9 mg/dL (8.5-10.1); CREATININE 1.2 mg/dL (0.6-1.0); GFR 59.3; POTASSIUM 3.3 mmol/L (3.5-5.1)
[2021-09-03 20:07] LABS: ALBUMIN 4.8 g/dL (3.4-5.0); DIRECT BILIRUBIN 0.3 mg/dL (0.0-0.2); TOTAL BILIRUBIN 2.1 mg/dL (0.2-1.0); TOTAL PROTEIN 8.4 g/dL (6.4-8.2)
[2021-09-03 20:22] LABS: INFLUENZA A PATIENT NEGATIVE (NEGATIVE); INFLUENZA B PATIENT NEGATIVE (NEGATIVE)
[2021-09-03 20:26] LABS: % LYMPHS 20 % (24-48); % MONOS 7 % (0-10); % SEGS 73 % (35-66); PLT ESTIMATE ADEQUATE (ADEQUATE)
[2021-09-03] MEDS ORDERED: PROCHLORPERAZINE 10 MG/2 ML VIAL. IV ONE (20:30)
[2021-09-03] MEDS ORDERED: diphenhydrAMINE 50 MG/ML VIAL IVP ONE (20:30)
[2021-09-03] MEDS ORDERED: cefTRIAXone SODIUM 1 GM VIAL ONE (21:43)
[2021-09-03] MEDS ORDERED: IV NORMAL SALINE 50ML 50 ML ONE (21:43)
[2021-09-03] MEDS ORDERED: IOHEXOL 300 MG/ML 50 ML VIAL. PO ONE (21:45)
[2021-09-03 22:05] VITALS: BP 170/102
[2021-09-03] MEDS ORDERED: CONTRAST GIVEN. MC PRN (23:00)
[2021-09-03] MEDS ORDERED: IOHEXOL 300 MG/ML 75 ML VIAL. IV ONE (23:00)
--- NOTE | 2021-09-03 23:52 | RAD ---
CT abdomen and pelvis with contrast PQRS statement: CT scans at this facility use dose reduction including either automated exposure cont rol, iterative reconstructions, and /or weight based radiation dosing via mA and kV modification when appropriate to reduce radiation dose to as low as reasonably achievable. Contrast: 100 mL Isovue-370 intravenous contrast. HISTORY: Abdominal pain. Leukocytosis. COMPARISON: CT abdomen and pelvis February 2019. Abdomen findings: A portion of the liver dome is outside the field of view. Cholecystectomy. There is an indistinct 2.5 cm hypodensity in segment IVb of the liver image 16-17 not apparent on the prior e xam. One subcentimeter focal hypodensity of segment 4 adjacent to falciform is stable typical of foca l fat. Pancreas, adrenal glands, kidneys unremarkable. Postoperative changes of partial vertical slee ve gastrectomy. The pancreas is normal. Couple of small splenules left upper quadrant. No obstruction or inflammation track. No abdominal fluid or adenopathy. Pelvis findings: Right ovarian 2 cm hypodensity image 58. There is a 3 cm hypodense mass of the left uterine fundus perhaps a leiomyoma this was present on the prior exam although may be larger on the c urrent exam. Bladder, rectum and bones are unremarkable. External genital piercing. No pelvic fluid o r adenopathy. IMPRESSION: 1. No acute process. The appendix is normal. 2. 3 cm uterine fundus mass likely a leiomyoma, although is somewhat larger since the prior exam. The re is also a new 2 cm right adnexal hypodensity with the prior exam, most likely a dominant follicle. Further assessment with outpatient pelvic sonography is advised. 3. 2.5 cm subtle indistinct hypodensity at segment IVb of the liver is new from prior imaging. This i s indeterminate. This may be nodular steatosis although a new mass lesion is not excluded. Consider f urther assessment with outpatient sonography or MR imaging. Electronically signed by: Abdias Coats MD (09/03/2021 11:50 PM) [facility]
[2021-09-04] MEDS ORDERED: SULF1TAB24 PO (00:21)
[2021-09-04] MEDS ORDERED: PROC10TA57 PO (00:21)
--- NOTE | 2021-09-04 00:31 | EKG ---
[address] [address] Test Date: 2021-09-03 Test Time: 19:48:12 Pat Name: MINH DOCKERY Department: Room: Gender: F Apprentice: : 1980 Requested By: TIN GREEN Order Number: [id number] Reading MD: Luis Charles Measurements Intervals [place] Rate: 52 P: RI: QRS: -5 QRSD: 92 T: 12 QT: 492 QTc: 460 Interpretive Statements SINUS BRADYCARDIA AV DISSOCIATION VENTRICULAR PREMATURE COMPLEX(ES) LEFTWARD AXIS ABNORMAL ECG RI6.02 No previous ECG available for comparison Electronically Signed On 09-05-2021 18:16:48 CDT by Luis Charles
== END 2021-09-04 00:47 | disposition home or self-care (01) ==
LOC: ER 18:21
DX: K52.9 Noninfective gastroenteritis and colitis, unspecified (principal); B34.9 Viral infection, unspecified; D72.829 Elevated white blood cell count, unspecified; D64.9 Anemia, unspecified; D75.839 Thrombocytosis, unspecified; R79.89 Other specified abnormal findings of blood chemistry; E86.0 Dehydration; R74.8 Abnormal levels of other serum enzymes; F17.210 Nicotine dependence, cigarettes, uncomplicated; F12.10 Cannabis abuse, uncomplicated; Z20.822 Contact with and (suspected) exposure to COVID-19; Z90.49 Acquired absence of other specified parts of digestive tract; Z88.5 Allergy status to narcotic agent
CPT/HCPCS: 36415; 74177; 80048; 80076; 80307; 81001; 81025; 82150; 82550; 83690; 84484; 85007; 85025; 87086; 87428; 87491; 87591; 93005; 96361; 96365; 96375; 96376; 99285; J0696; J0780; J1200; J1885; J2405; J3490; J7120; Q9967